=== PATIENT | female | born 1960 | race Caucasian/White ===

== ENCOUNTER 2016-12-11 12:29 | Inpatient (IN) | payer BC ==
[~2016-12-11] VITALS: Ht 165.1 cm; Wt 88.5 kg
[~2016-12-11 12:29] MED LIST: AMLO5TAB4 PO; DABI75CA3 PO; DIGO125T6 PO; DULO20CA45 PO; FLUO20CA19 PO; FURO-92 PO; LORA2TAB99 PO; ONDA4TAB7 PO; POTA20TA6 PO; SILD20TA PO; TIOT18CA INH; TREP0.12 PO; TREP2.5T PO; [UNRECOGNIZED DRUG - CODE] SC
[2016-12-11] MEDS ORDERED: ASPIRIN 81 MG TABLET CHEW PO ONE (13:00)
[2016-12-11] MEDS ORDERED: SODIUM CHLORIDE FLUSH 10ML SYR IVF ONE (13:00)
[2016-12-11] MEDS ORDERED: ASPIRIN 81 MG TABLET CHEW ONE (13:02)
[2016-12-11] MEDS ORDERED: FURO20TA3 PO (13:15)
[2016-12-11] MEDS ORDERED: TREP1TAB PO (13:19)
[2016-12-11 13:20] LABS: BLOOD UREA NITROGEN 17 mg/dL (7-18)
[2016-12-11] MEDS ORDERED: SPIR25TA3 PO (13:21)
[2016-12-11 13:25] LABS: IS PT STATUS REG ER OR PRE ER? YES
[2016-12-11] MEDS ORDERED: ACET1TAB50 PO (13:25)
[2016-12-11] MEDS ORDERED: DABI150C PO (13:25)
[2016-12-11] MEDS ORDERED: LOPE2TAB28 PO (13:25)
[2016-12-11] MEDS ORDERED: LORA10TA3 PO (13:25)
[2016-12-11] MEDS ORDERED: PHARMACY INSTRUCTION MC PRN (17:00)
[2016-12-11] MEDS ORDERED: ACETAMINOPHEN 325 MG TABLET PO PRN (17:00)
[2016-12-11] MEDS ORDERED: POLYETHYLENE GLYCOL 17 GM PACKET PO PRN (17:00)
[2016-12-11] MEDS ORDERED: BISACODYL 10 MG SUPP PR PRN (17:00)
[2016-12-11] MEDS ORDERED: ONDANSETRON 2MG/ML, 2ML IVP PRN (17:00)
[2016-12-11] MEDS ORDERED: PLEASE ENTER WEIGHT MC SCH (18:00)
[2016-12-11] MEDS ORDERED: FUROSEMIDE 20 MG TABLET PO SCH (18:15)
[2016-12-11 18:23] VITALS: BP 146/84
[2016-12-11] MEDS: TREPROSTINIL DIOLAMINE HOMEMEDPO SCH (18:28)
[2016-12-11 19:45] LABS: IS PT STATUS REG ER OR PRE ER? NO
[2016-12-11 20:33] VITALS: BP 111/75
[2016-12-11] MEDS: SILDENAFIL 20 MG TABLET HOMEMEDPO SCH (21:00)
[2016-12-11] MEDS ORDERED: SILDENAFIL 20 MG TABLET PO SCH (21:00)
[2016-12-11] MEDS: POTASSIUM CHLORIDE 20 MEQ TAB.ER.PRT PO SCH (21:32)
[2016-12-11] MEDS: DABIGATRAN 150 MG CAPSULE PO SCH (21:32)
[2016-12-12 01:20] VITALS: BP 95/64
[2016-12-12 01:43] LABS: IS PT STATUS REG ER OR PRE ER? NO
[2016-12-12 06:11] LABS: ASPARTATE AMINO TRANSFERASE 9 U/L (15-37); BLOOD UREA NITROGEN 20 mg/dL (7-18)
[2016-12-12 07:45] VITALS: BP 134/90
[2016-12-12] MEDS: POTASSIUM CHLORIDE 20 MEQ TAB.ER.PRT PO SCH (08:55)
[2016-12-12] MEDS: DABIGATRAN 150 MG CAPSULE PO SCH (08:55)
[2016-12-12] MEDS ORDERED: SPIRONOLACTONE 25 MG TABLET PO SCH (09:00)
[2016-12-12] MEDS ORDERED: LORATADINE 10 MG TABLET PO SCH (09:00)
[2016-12-12] MEDS: TREPROSTINIL DIOLAMINE HOMEMEDPO SCH (09:00)
[2016-12-12] MEDS ORDERED: FLUOXETINE 20 MG CAPSULE PO SCH (09:00)
[2016-12-12] MEDS ORDERED: FUROSEMIDE 40 MG TABLET PO SCH (09:00)
[2016-12-12] MEDS: SILDENAFIL 20 MG TABLET HOMEMEDPO SCH (09:00)
[2016-12-12] MEDS ORDERED: DIGOXIN 0.125 MG TABLET PO SCH (09:00)
[2016-12-12] MEDS ORDERED: AMLODIPINE 5 MG TABLET PO SCH (09:00)
== END 2016-12-12 18:38 | disposition home or self-care (01) | DRG 311 ==
LOC: ED 14:50 → EDIP 14:52 → ED 14:54 → 5SO 17:34
PROVIDERS: ADMIT Internal Medicine; ATTEND Internal Medicine
DX: I20.9 Angina pectoris, unspecified (principal); I50.33 Acute on chronic diastolic (congestive) heart failure; J96.10 Chronic respiratory failure, unspecified whether with hypoxia or hypercapnia; D68.59 Other primary thrombophilia; I48.0 Paroxysmal atrial fibrillation; I11.0 Hypertensive heart disease with heart failure; F32.9 Major depressive disorder, single episode, unspecified; I07.1 Rheumatic tricuspid insufficiency; F41.9 Anxiety disorder, unspecified; Z79.01 Long term (current) use of anticoagulants; Z79.899 Other long term (current) drug therapy; Z88.8 Allergy status to other drugs, medicaments and biological substances; Z99.81 Dependence on supplemental oxygen
CPT/HCPCS: 36415; 71010; 80048; 80053; 80061; 80162; 82040; 83880; 84443; 84484; 85025; 93005; 93306; 99285

== ENCOUNTER 2016-12-20 19:53 | Inpatient (IN) | payer BC ==
[~2016-12-20] VITALS: Ht 165.1 cm; Wt 88.1 kg
[~2016-12-20 19:53] MED LIST changes: +ACET1TAB50 PO; +DABI150C PO; +FURO20TA3 PO; +LOPE2TAB28 PO; +LORA10TA3 PO; +SPIR25TA3 PO; +TREP1TAB PO
[2016-12-20] MEDS ORDERED: SODIUM CHLORIDE FLUSH 10ML SYR IVF ONE (20:30)
[2016-12-20 20:41] LABS: BLOOD UREA NITROGEN 15 mg/dL (7-18)
[2016-12-20 20:46] LABS: ASPARTATE AMINO TRANSFERASE 20 U/L (15-37)
[2016-12-20 20:47] LABS: IS PT STATUS REG ER OR PRE ER? YES
[2016-12-20] MEDS ORDERED: SODIUM CHLORIDE FLUSH 10ML SYR IVF PRN (22:00)
[2016-12-20 23:47] VITALS: BP 125/72
[2016-12-21] MEDS ORDERED: ACETAMINOPHEN HOMEMEDPO PRN (00:30)
[2016-12-21] MEDS ORDERED: DIPHENHYDRAMINE HOMEMEDPO PRN (00:30)
[2016-12-21] MEDS ORDERED: [UNRECOGNIZED DRUG - OTHER] HOMEMEDPO PRN (00:30)
[2016-12-21] MEDS ORDERED: ORENITRAM MC SCH (00:30)
[2016-12-21] MEDS ORDERED: ACETAMINOPHEN 325 MG TABLET PO PRN (00:30)
[2016-12-21] MEDS ORDERED: LOPERAMIDE 2 MG CAPSULE PO PRN (00:30)
[2016-12-21] MEDS ORDERED: FUROSEMIDE 20 MG TABLET PO SCH (00:30)
[2016-12-21] MEDS ORDERED: TEMAZEPAM 15 MG CAPSULE PO PRN (00:30)
[2016-12-21 01:05] LABS: IS PT STATUS REG ER OR PRE ER? NO
[2016-12-21 03:19] VITALS: BP 101/65
[2016-12-21 06:50] LABS: IS PT STATUS REG ER OR PRE ER? NO
[2016-12-21 08:53] VITALS: BP 127/85
[2016-12-21] MEDS ORDERED: TREPROSTINIL DIOLAMINE HOMEMEDPO SCH (09:00)
[2016-12-21] MEDS ORDERED: DABIGATRAN 150 MG CAPSULE PO SCH (09:00)
[2016-12-21] MEDS ORDERED: FUROSEMIDE 40 MG TABLET PO SCH (09:00)
[2016-12-21] MEDS ORDERED: LORATADINE 10 MG TABLET PO SCH (09:00)
[2016-12-21] MEDS ORDERED: SPIRONOLACTONE 25 MG TABLET PO SCH (09:00)
[2016-12-21] MEDS ORDERED: DIGOXIN 0.125 MG TABLET PO SCH (09:00)
[2016-12-21] MEDS ORDERED: FLUOXETINE 20 MG CAPSULE PO SCH (09:00)
[2016-12-21] MEDS ORDERED: AMLODIPINE 5 MG TABLET PO SCH (09:00)
[2016-12-21] MEDS ORDERED: SILDENAFIL 20 MG TABLET PO SCH (09:00)
[2016-12-21] MEDS ORDERED: POTASSIUM CHLORIDE 20 MEQ TAB.ER.PRT PO SCH (09:00)
[2016-12-21 10:17] LABS: PATH.CAST-FLAG NOT PRESENT; SPERM-FLAG NOT PRESENT; SRC-FLAG NOT PRESENT; XTAL-FLAG NOT PRESENT; YLC-FLAG NOT PRESENT
[2016-12-21] MEDS ORDERED: LACT1CAP24 PO (11:11)
[2016-12-21] MEDS ORDERED: CEFD300C37 PO (11:11)
[2016-12-21] MEDS ORDERED: CEFDINIR 300 MG CAPSULE PO SCH (11:30)
[2016-12-21 12:47] VITALS: BP 105/78
== END 2016-12-21 13:13 | disposition home or self-care (01) | DRG 291 ==
LOC: ED 21:22 → EDIP 21:43 → 5SO 23:12 → DCLOUNGE 12-21 12:47
PROVIDERS: ADMIT Internal Medicine; ATTEND Internal Medicine
DX: I11.0 Hypertensive heart disease with heart failure (principal); J96.20 Acute and chronic respiratory failure, unspecified whether with hypoxia or hypercapnia; D68.69 Other thrombophilia; N39.0 Urinary tract infection, site not specified; I50.33 Acute on chronic diastolic (congestive) heart failure; I48.0 Paroxysmal atrial fibrillation; F32.9 Major depressive disorder, single episode, unspecified; I95.9 Hypotension, unspecified; I07.1 Rheumatic tricuspid insufficiency; Z88.8 Allergy status to other drugs, medicaments and biological substances; Z99.81 Dependence on supplemental oxygen
CPT/HCPCS: 36415; 80053; 80162; 81001; 84484; 85025; 87086; 93005; 93880

== ENCOUNTER 2017-01-03 10:16 | Day surgery (SDC) | payer BC ==
[~2017-01-03] VITALS: Ht 165.1 cm; Wt 84.1 kg
[~2017-01-03 10:16] MED LIST changes: +CEFD300C37 PO; +LACT1CAP24 PO
[2017-01-03] MEDS ORDERED: SODIUM CHLORIDE 0.9% 1,000 ML IV SCH (10:52)
[2017-01-03 10:58] VITALS: BP 108/66
[2017-01-03] MEDS ORDERED: PLEASE ENTER HEIGHT AND WEIGHT MC SCH (11:30)
[2017-01-03] MEDS ORDERED: FENTANYL PF 100 MCG/2ML ONE (12:33)
[2017-01-03] MEDS ORDERED: MIDAZOLAM 1 MG/ML, 5ML ONE (12:33)
[2017-01-03] MEDS ORDERED: LIDOCAINE 2%, 20ML ONE (12:33)
== END 2017-01-03 17:00 | disposition home or self-care (01) ==
LOC: CACL 10:16
PROVIDERS: ATTEND Internal Medicine Cardiovascular Disease
DX: I27.0 Primary pulmonary hypertension (principal); I36.1 Nonrheumatic tricuspid (valve) insufficiency; I48.0 Paroxysmal atrial fibrillation; Z88.6 Allergy status to analgesic agent; Z82.49 Family history of ischemic heart disease and other diseases of the circulatory system; Z79.01 Long term (current) use of anticoagulants
CPT/HCPCS: 93451; 99152; C1894; J2250; J3010; J3490

== ENCOUNTER → 2017-01-17 | Outpatient (CLI) | payer BC | END | disposition home or self-care (01) | LOC: CARD 15:19 | PROVIDERS: ATTEND Internal Medicine Cardiovascular Disease | DX: R06.02 Shortness of breath (principal) | CPT/HCPCS: 94060; 94726; 94729 ==

== ENCOUNTER 2018-08-28 08:13 | Day surgery (SDC) | payer OTHER ==
[~2018-08-28] VITALS: Ht 165.1 cm; Wt 87.3 kg
[~2018-08-28 08:13] MED LIST changes: +ACET-458 PO; -ACET1TAB50 PO; -DIGO125T6 PO; +DIGO125T81 PO; +LORA-247 PO; -LORA10TA3 PO; -SPIR25TA3 PO; +SPIR25TA5 PO
[2018-08-28 08:51] VITALS: BP 109/77
[2018-08-28] MEDS ORDERED: MACI10TA PO (09:08)
[2018-08-28 09:21] LABS: ANION GAP 7 mmol/L (5-15); CALCIUM 9.1 mg/dL (8.5-10.1); CHLORIDE 110 mmol/L (98-107)
[2018-08-28] MEDS ORDERED: PROPOFOL 10 MG/ML, 20ML ONE (15:59)
== END 2018-08-28 12:20 | disposition home or self-care (01) ==
LOC: CACL 08:13
PROVIDERS: ATTEND Internal Medicine Cardiovascular Disease
DX: I48.92 Unspecified atrial flutter (principal); I27.0 Primary pulmonary hypertension; I25.10 Atherosclerotic heart disease of native coronary artery without angina pectoris; Z79.01 Long term (current) use of anticoagulants; Z88.6 Allergy status to analgesic agent; Z88.8 Allergy status to other drugs, medicaments and biological substances
CPT/HCPCS: 36415; 80048; 80162; 92960; J2704

== ENCOUNTER 2018-09-29 07:18 | Inpatient (IN) | payer OTHER ==
[~2018-09-29] VITALS: Ht 165.1 cm; Wt 87.4 kg
[~2018-09-29 07:18] MED LIST changes: +MACI10TA PO
--- NOTE | 2018-09-29 07:57 | NUR ---
PT BIB FIRE FROM [facility]. PT WAS FOUND DOWN BY AND HAVING N/V AND DIARRHEA. PT STATED SHE DRANK A BOTTLE OF WINE LAST NIGHT. PT STATED SHE HAS BEEN A MEDICATION AT WHICH YOU ARE NOT SUPPOSED TO DRINK WITH. PT WITH HX: AFIB ON PRADAXA. PT WITH LARGE BM WITH BLOOD IN STOOL. PT CLEANED UP. PT THEN HAD COFFEE GROUND EMESIS. PT VERY DROWSY. PT RED THROUGHOUT BODY. PT PLACED ON BP, CARDIAC AND CONT. PULSE OXIMETER. ASSESSMETN COMPLETED. IV STARTED AND BLOOD DRAWN.
[2018-09-29] MEDS ORDERED: SODIUM CHLORIDE 0.9% 1,000ML IVBOLUS ONE ×2 (08:00→10:00)
[2018-09-29] MEDS ORDERED: PANTOPRAZOLE 80 MG in SODIUM CHLORIDE 0.9% 100 ML IV SCH (08:00)
[2018-09-29] MEDS ORDERED: SODIUM CHLORIDE FLUSH 10ML SYR IVF ONE (08:00)
[2018-09-29] MEDS ORDERED: FAMOTIDINE 20 MG/2 ML IVPush ONE (08:00)
[2018-09-29] MEDS ORDERED: ONDANSETRON 2MG/ML, 2ML IVPush ONE (08:00)
[2018-09-29] MEDS ORDERED: PANTOPRAZOLE 80 MG in SODIUM CHLORIDE 0.9% 50 ML IVPB ONE (08:00)
[2018-09-29] MEDS ORDERED: FAMOTIDINE 20 MG/2 ML ONE (08:20)
[2018-09-29] MEDS ORDERED: ONDANSETRON 2MG/ML, 2ML ONE (08:21)
[2018-09-29 08:36] LABS: BASOPHILS # (AUTO) 0.02 x10^3/uL (0-0.1); BASOPHILS % (AUTO) 0 % (0-1); EOSINOPHILS # (AUTO) 0.01 x10^3/uL (0-0.4); EOSINOPHILS % (AUTO) 0 % (1-7); LYMPHOCYTES % (AUTO) 8 % (22-44); MD NO; MEAN CORPUSCULAR HEMOGLOBIN 30.7 pg (27.0-34.8); MEAN CORPUSCULAR HGB CONC 32.6 g/dL (32.4-35.8); MEAN CORPUSCULAR VOLUME 94.1 fL (80-100); MEAN PLATELET VOLUME 8.7 fL (7.4-10.4); MONOCYTES # (AUTO) 0.39 x10^3/uL (0.2-0.8); MONOCYTES % (AUTO) 3 % (2-9); NEUTROPHILS # (AUTO) 14.25 x10^3/uL (1.8-6.8); NEUTROPHILS % (AUTO) 90 % (42-75); PLATELET COUNT 291 x10^3/uL (130-400); RED BLOOD COUNT 5.63 x10^6/uL (3.82-5.3); RED CELL DISTRIBUTION WIDTH 13.9 % (9.6-15.2)
[2018-09-29 08:46] LABS: INTERNATIONAL NORMALIZED RATIO 1.08 (0.93-1.1); PROTHROMBIN TIME 11.4 Seconds (9.6-11.5)
[2018-09-29 08:47] LABS: ALANINE AMINOTRANSFERASE 26 U/L (12-78); ALBUMIN 4.5 g/dL (3.4-5.0); ANION GAP 14 mmol/L (5-15); CALCIUM 9.7 mg/dL (8.5-10.1); CHLORIDE 108 mmol/L (98-107)
[2018-09-29 08:49] LABS: ALKALINE PHOSPHATASE 118 U/L (45-117); BILIRUBIN,TOTAL 0.3 mg/dL (0.2-1.0); CREATININE 1.55 mg/dL (0.55-1.02); TOTAL PROTEIN 8.4 g/dL (6.4-8.2)
--- NOTE | 2018-09-29 09:30 | NUR ---
pt resting in bed. no further emesis or bloody stools. vitals stable. meds given per md order
[2018-09-29] MEDS ORDERED: FLUT1DIS IH (09:35)
[2018-09-29] MEDS ORDERED: POLYETHYLENE GLYCOL 17 GM PACKET PO PRN (10:30)
[2018-09-29] MEDS ORDERED: ONDANSETRON 2MG/ML, 2ML IVPush PRN (10:30)
[2018-09-29] MEDS ORDERED: [UNRECOGNIZED DRUG - OTHER] HOMEMEDPO PRN (10:30)
[2018-09-29] MEDS ORDERED: DIPHENHYDRAMINE HOMEMEDPO PRN (10:30)
[2018-09-29] MEDS ORDERED: PANTOPRAZOLE 40 MG IV IVPush SCH (10:30)
[2018-09-29] MEDS ORDERED: ACETAMINOPHEN HOMEMEDPO PRN (10:30)
[2018-09-29] MEDS ORDERED: LABETALOL 5MG/ML, 20ML IVPush PRN (10:30)
[2018-09-29] MEDS ORDERED: ONDANSETRON ODT 4 MG PO PRN (10:30)
--- NOTE | 2018-09-29 10:33 | NUR ---
report given to ivy swan. per dr. smith- no fluids will be given for sepsis protocal. blood cultures orderd. no antibiotics given as of yet per dr. smith.
[2018-09-29 10:51] LABS: FREE T4 (FREE THYROXINE) 1.46 ng/dL (0.76-1.46)
[2018-09-29 11:11] VITALS: BP 152/72
[2018-09-29 13:23] LABS: MICROSCOPIC INDICATED
[2018-09-29] MEDS ORDERED: SODIUM CHLORIDE 0.45% 500 ML IV ONE ×2 (13:30→15:00)
[2018-09-29 13:32] LABS: CULTURE INDICATED? NO
[2018-09-29 14:00] VITALS: BP 124/73
[2018-09-29] MEDS ORDERED: IPRATROPIUM 0.5 MG/2.5 ML INHA NPPB PRN (17:00)
[2018-09-29] MEDS: SILDENAFIL 20 MG TABLET PO SCH (18:05)
[2018-09-29 19:57] VITALS: BP 113/68
[2018-09-29] MEDS: IPRATROPIUM 0.5 MG/2.5 ML INHA NPPB SCH (20:40)
[2018-09-29] MEDS: PANTOPRAZOLE 40 MG IV IVPush SCH (21:11)
[2018-09-30 02:20] VITALS: BP 110/61
[2018-09-30 05:55] LABS: BASOPHILS # (AUTO) 0.03 x10^3/uL (0-0.1); BASOPHILS % (AUTO) 0 % (0-1); EOSINOPHILS # (AUTO) 0.06 x10^3/uL (0-0.4); EOSINOPHILS % (AUTO) 1 % (1-7); LYMPHOCYTES # (AUTO) 1.64 x10^3/uL (1-3.4); LYMPHOCYTES % (AUTO) 19 % (22-44); MD NO; MEAN CORPUSCULAR HEMOGLOBIN 31.4 pg (27.0-34.8); MEAN CORPUSCULAR VOLUME 95.1 fL (80-100); MEAN PLATELET VOLUME 9.4 fL (7.4-10.4); MONOCYTES # (AUTO) 0.24 x10^3/uL (0.2-0.8); MONOCYTES % (AUTO) 3 % (2-9); NEUTROPHILS # (AUTO) 6.47 x10^3/uL (1.8-6.8); NEUTROPHILS % (AUTO) 77 % (42-75); PLATELET COUNT 222 x10^3/uL (130-400); RED CELL DISTRIBUTION WIDTH 14.1 % (9.6-15.2)
[2018-09-30 06:02] LABS: ALBUMIN 3.2 g/dL (3.4-5.0); ANION GAP 6 mmol/L (5-15); CALCIUM 7.8 mg/dL (8.5-10.1); CHLORIDE 112 mmol/L (98-107)
[2018-09-30 06:13] LABS: ALANINE AMINOTRANSFERASE 19 U/L (12-78); ALKALINE PHOSPHATASE 64 U/L (45-117); BILIRUBIN,TOTAL 0.7 mg/dL (0.2-1.0); CREATININE 0.95 mg/dL (0.55-1.02); THYROID STIMULATING HORMONE 0.596 mIU/L (0.358-3.740); TOTAL PROTEIN 6.2 g/dL (6.4-8.2)
[2018-09-30 07:41] VITALS: BP 129/77
[2018-09-30] MEDS: SILDENAFIL 20 MG TABLET PO SCH ×3 (08:00→21:37)
[2018-09-30] MEDS: TEMPLATE NON-FORMULARY MED. (Fluticasone/Salmeterol** (Advair 100-50 Diskus**) 1 PUFF) IH SCH (08:49)
[2018-09-30] MEDS: PANTOPRAZOLE 40 MG IV IVPush SCH (08:49)
[2018-09-30] MEDS: DIGOXIN 0.125 MG TABLET PO SCH (08:50)
[2018-09-30] MEDS: SPIRONOLACTONE 25 MG TABLET PO SCH (08:50)
[2018-09-30] MEDS: TEMPLATE NON-FORMULARY MED. (Macitentan** (Opsumit**) 10 MG) HOMEMEDPO SCH (08:50)
[2018-09-30] MEDS: AMLODIPINE 2.5 MG TABLET PO SCH (08:51)
[2018-09-30] MEDS: FLUOXETINE HCL 20 MG CAPSULE PO SCH (08:51)
[2018-09-30] MEDS: SENNA/DOCUSATE TABLET PO SCH (08:51)
[2018-09-30] MEDS: IPRATROPIUM 0.5 MG/2.5 ML INHA NPPB SCH ×2 (09:00→21:00)
[2018-09-30] MEDS ORDERED: AMLODIPINE 5 MG TABLET PO SCH (09:00)
[2018-09-30] MEDS: BUDESONIDE 0.5 MG/2 ML INHA INH SCH ×2 (09:00→21:00)
[2018-09-30] MEDS ORDERED: PROPOFOL 10 MG/ML, 50ML ONE (12:35)
[2018-09-30 13:55] VITALS: BP 106/72
[2018-09-30 18:54] VITALS: BP 129/73
[2018-09-30] MEDS: PANTOPROZOLE 40MG TABLET PO SCH (20:40)
[2018-10-01 01:30] VITALS: BP 99/58
[2018-10-01] MEDS: PANTOPROZOLE 40MG TABLET PO SCH (05:12)
[2018-10-01 06:11] LABS: BASOPHILS # (AUTO) 0.05 x10^3/uL (0-0.1); BASOPHILS % (AUTO) 1 % (0-1); EOSINOPHILS # (AUTO) 0.15 x10^3/uL (0-0.4); EOSINOPHILS % (AUTO) 2 % (1-7); LYMPHOCYTES # (AUTO) 1.72 x10^3/uL (1-3.4); LYMPHOCYTES % (AUTO) 18 % (22-44); MD NO; MEAN CORPUSCULAR HEMOGLOBIN 31.7 pg (27.0-34.8); MEAN CORPUSCULAR HGB CONC 33.5 g/dL (32.4-35.8); MEAN CORPUSCULAR VOLUME 94.5 fL (80-100); MEAN PLATELET VOLUME 8.5 fL (7.4-10.4); MONOCYTES # (AUTO) 0.49 x10^3/uL (0.2-0.8); MONOCYTES % (AUTO) 5 % (2-9); NEUTROPHILS # (AUTO) 7.11 x10^3/uL (1.8-6.8); NEUTROPHILS % (AUTO) 75 % (42-75); PLATELET COUNT 201 x10^3/uL (130-400); RED BLOOD COUNT 4.77 x10^6/uL (3.82-5.3); RED CELL DISTRIBUTION WIDTH 13.6 % (9.6-15.2)
[2018-10-01 06:25] LABS: ANION GAP 5 mmol/L (5-15); CHLORIDE 109 mmol/L (98-107)
[2018-10-01 07:50] VITALS: BP 110/73
[2018-10-01] MEDS: BUDESONIDE 0.5 MG/2 ML INHA INH SCH (08:09)
[2018-10-01] MEDS: IPRATROPIUM 0.5 MG/2.5 ML INHA NPPB SCH (08:09)
[2018-10-01 08:11] LABS: ALANINE AMINOTRANSFERASE 19 U/L (12-78); ALBUMIN 3.4 g/dL (3.4-5.0); BILIRUBIN,TOTAL 0.5 mg/dL (0.2-1.0); CALCIUM 8.5 mg/dL (8.5-10.1); CREATININE 0.97 mg/dL (0.55-1.02); TOTAL PROTEIN 6.6 g/dL (6.4-8.2)
[2018-10-01] MEDS ORDERED: DABIGATRAN 150 MG CAPSULE PO SCH (09:00)
[2018-10-01] MEDS: FLUOXETINE HCL 20 MG CAPSULE PO SCH (09:10)
[2018-10-01] MEDS: AMLODIPINE 2.5 MG TABLET PO SCH (09:10)
[2018-10-01] MEDS: SENNA/DOCUSATE TABLET PO SCH (09:10)
[2018-10-01] MEDS: DIGOXIN 0.125 MG TABLET PO SCH (09:11)
[2018-10-01] MEDS: SILDENAFIL 20 MG TABLET PO SCH (09:15)
[2018-10-01] MEDS: SPIRONOLACTONE 25 MG TABLET PO SCH (09:15)
[2018-10-01] MEDS: TEMPLATE NON-FORMULARY MED. (Fluticasone/Salmeterol** (Advair 100-50 Diskus**) 1 PUFF) IH SCH (09:16)
[2018-10-01] MEDS: TEMPLATE NON-FORMULARY MED. (Macitentan** (Opsumit**) 10 MG) HOMEMEDPO SCH (09:16)
[2018-10-01] MEDS ORDERED: PANT40TA5 PO (11:54)
[2018-10-01] MEDS ORDERED: DABI150C PO (11:54)
[2018-10-01 13:03] VITALS: BP 127/82
[2018-10-01 14:03] LABS: ALKALINE PHOSPHATASE 70 U/L (45-117)
[2018-10-01] MEDS ORDERED: POTA20TA6 PO (15:45)
== END 2018-10-01 13:45 | disposition home or self-care (01) | DRG 813 ==
LOC: ED 08:33 → EDIP 09:47 → 5SO 12:51 → DCLOUNGE 10-01 13:35
PROVIDERS: ADMIT Hospitalist; ATTEND Hospitalist
PROC: 0DJ68ZZ Inspection of Stomach, Via Natural or Artificial Opening Endoscopic (ICD-10-PCS; principal; 2018-09-30 12:30)
DX: D68.32 Hemorrhagic disorder due to extrinsic circulating anticoagulants (principal); K22.11 Ulcer of esophagus with bleeding; D68.59 Other primary thrombophilia; E87.1 Hypo-osmolality and hyponatremia; E87.0 Hyperosmolality and hypernatremia; E87.2 Acidosis; I50.30 Unspecified diastolic (congestive) heart failure; J96.10 Chronic respiratory failure, unspecified whether with hypoxia or hypercapnia; N17.9 Acute kidney failure, unspecified; N39.0 Urinary tract infection, site not specified; D64.9 Anemia, unspecified; E86.0 Dehydration; F32.9 Major depressive disorder, single episode, unspecified; I95.9 Hypotension, unspecified; T45.515A Adverse effect of anticoagulants, initial encounter; R74.8 Abnormal levels of other serum enzymes; F41.9 Anxiety disorder, unspecified; I11.0 Hypertensive heart disease with heart failure; I48.0 Paroxysmal atrial fibrillation; K21.9 Gastro-esophageal reflux disease without esophagitis; K22.2 Esophageal obstruction; K44.9 Diaphragmatic hernia without obstruction or gangrene; E66.9 Obesity, unspecified; Z87.81 Personal history of (healed) traumatic fracture; Z79.02 Long term (current) use of antithrombotics/antiplatelets; Z79.899 Other long term (current) drug therapy; Z82.49 Family history of ischemic heart disease and other diseases of the circulatory system; Z87.891 Personal history of nicotine dependence; Z88.8 Allergy status to other drugs, medicaments and biological substances; Y92.89 Other specified places as the place of occurrence of the external cause; Z68.32 Body mass index [BMI] 32.0-32.9, adult
CPT/HCPCS: 36415; 99291; J3490; J7626; J7644; 71045; 71046; 80053; 80162; 81001; 83605; 83690; 83735; 84100; 84439; 84443; 85014; 85018; 85025; 85610; 85730; 86850; 86900; 87040; 93005; 94640; G0378; J2405; J2704; C9113; J7030

== ENCOUNTER → 2019-08-17 | Outpatient (CLI) | payer OTHER ==
[~2019-08-17] MED LIST changes: +FLUT1DIS IH; +PANT40TA5 PO
== END | disposition home or self-care (01) ==
LOC: CVU 14:43
PROVIDERS: ATTEND Internal Medicine Cardiovascular Disease
DX: I27.0 Primary pulmonary hypertension (principal); I08.1 Rheumatic disorders of both mitral and tricuspid valves; I48.92 Unspecified atrial flutter; R06.02 Shortness of breath
CPT/HCPCS: 93306; 94060; 94726; 94729

== ENCOUNTER 2019-11-17 15:10 | Outpatient (CLI) | payer OTHER | END 2019-11-17 23:59 | disposition home or self-care (01) | LOC: CFH 15:10 | PROVIDERS: ATTEND Internal Medicine Cardiovascular Disease | DX: R91.1 Solitary pulmonary nodule (principal); J84.10 Pulmonary fibrosis, unspecified; J92.9 Pleural plaque without asbestos; Z87.891 Personal history of nicotine dependence | CPT/HCPCS: 71250 ==

== ENCOUNTER 2020-06-14 10:40 | Outpatient (CLI) | payer OTHER ==
[~2020-06-14 10:40] MED LIST changes: -PANT40TA5 PO; +PANT40TA6 PO
== END 2020-06-14 23:59 | disposition home or self-care (01) ==
LOC: RAD 10:40
PROVIDERS: ATTEND Internal Medicine Cardiovascular Disease
DX: I27.0 Primary pulmonary hypertension (principal); R06.02 Shortness of breath; I51.7 Cardiomegaly
CPT/HCPCS: 71046; 78582; A9540; A9558

== ENCOUNTER 2020-11-16 13:25 | Day surgery (SDC) | payer OTHER ==
[~2020-11-16] VITALS: Ht 165.1 cm; Wt 88.1 kg
[2020-11-16] MEDS ORDERED: CHLORHEXIDINE 15 ML UDC PO ONE ×2 (14:00→15:00)
[2020-11-16] MEDS ORDERED: LACTATED RINGERS 1,000 ML IV SCH ×2 (14:00→15:00)
[2020-11-16] MEDS ORDERED: APIX2.5T PO (14:20)
[2020-11-16] MEDS ORDERED: COLC0.6T37 PO (14:28)
[2020-11-16 15:00] VITALS: BP 120/78
[2020-11-16 15:01] LABS: BASOPHILS % (AUTO) 1 % (0-1); EOSINOPHILS % (AUTO) 2 % (1-7); LYMPHOCYTES % (AUTO) 18 % (22-44); MEAN CORPUSCULAR HEMOGLOBIN 28.4 pg (27.0-34.8); MEAN CORPUSCULAR HGB CONC 32.6 g/dL (32.4-35.8); MEAN PLATELET VOLUME 7.8 fL (7.4-10.4); MONOCYTES % (AUTO) 5 % (2-9); NEUTROPHILS % (AUTO) 75 % (42-75); PLATELET COUNT 227 x10^3/uL (130-400); RED BLOOD COUNT 4.88 x10^6/uL (3.82-5.3); RED CELL DISTRIBUTION WIDTH 17.3 % (9.6-15.2)
[2020-11-16 15:06] LABS: MD NO
[2020-11-16 15:09] LABS: ANION GAP 5 mmol/L (5-15); CALCIUM 9.2 mg/dL (8.5-10.1); CHLORIDE 111 mmol/L (98-107); CREATININE 0.85 mg/dL (0.55-1.02)
[2020-11-16] MEDS ORDERED: HEPARIN 5,000 UNITS/ML, 1ML ONE (15:20)
[2020-11-16] MEDS ORDERED: BUPIVACAINE/PF 0.25% ONE (15:20)
[2020-11-16] MEDS ORDERED: HEPARIN 1,000 UNITS/ML, 10ML ONE (15:20)
[2020-11-16] MEDS ORDERED: EPINEPHRINE 1 MG/ML, 1ML ONE (15:20)
[2020-11-16] MEDS ORDERED: MILRINONE 1 MG/ML, 10ML IV ONE (15:42)
[2020-11-16] MEDS ORDERED: HALOPERIDOL 5 MG/ML IV PRN (16:00)
[2020-11-16] MEDS ORDERED: HYDROmorphone 1 MG/ML, 1ML INJ IVPush PRN (16:00)
[2020-11-16] MEDS ORDERED: PROMETHAZINE 25 MG/ML, 1ML IVPush PRN (16:00)
[2020-11-16] MEDS ORDERED: OXYcodone 5 MG/5 ML ORAL.SOL UDC PO PRN (16:00)
[2020-11-16] MEDS ORDERED: FENTANYL PF 100 MCG/2ML IV PRN (16:00)
[2020-11-16] MEDS ORDERED: LABETALOL 5MG/ML, 20ML IV PRN (16:00)
[2020-11-16] MEDS ORDERED: DIPHENHYDRAMINE 50 MG/ML, 1ML IVPush PRN (16:00)
[2020-11-16] MEDS ORDERED: hydrALAzine 20 MG/ML, 1ML IV PRN (16:00)
[2020-11-16] MEDS ORDERED: MEPERIDINE/PF 25MG/0.5ML IVPush PRN (16:00)
[2020-11-16] MEDS ORDERED: FENTANYL PF 100 MCG/2ML ONE (16:04)
[2020-11-16] MEDS ORDERED: MIDAZOLAM 1 MG/ML, 2ML ONE ×2 (16:04→16:32)
[2020-11-16] MEDS ORDERED: LIDOCAINE 1%, 20ML ONE (16:46)
[2020-11-16] MEDS ORDERED: PROPOFOL 10 MG/ML, 20ML ONE ×2 (16:59→18:28)
[2020-11-16] MEDS ORDERED: FENTANYL PF 250 MCG/5ML ONE (17:53)
[2020-11-16] MEDS ORDERED: ONDANSETRON 2MG/ML, 2ML ONE (18:28)
[2020-11-16] MEDS ORDERED: CEFAZOLIN 1,000 MG ONE (18:28)
== END 2020-11-16 20:20 | disposition home or self-care (01) ==
LOC: OR 13:25
PROVIDERS: ATTEND Surgery
DX: I27.20 Pulmonary hypertension, unspecified (principal); I48.91 Unspecified atrial fibrillation; I10 Essential (primary) hypertension; E66.9 Obesity, unspecified; Z20.822 Contact with and (suspected) exposure to COVID-19; Z79.01 Long term (current) use of anticoagulants; Z79.899 Other long term (current) drug therapy; Z88.8 Allergy status to other drugs, medicaments and biological substances; Z99.81 Dependence on supplemental oxygen; Z82.49 Family history of ischemic heart disease and other diseases of the circulatory system
CPT/HCPCS: 36415; 36556; 71045; 80048; 85025; 87635; 93005; C1788; J0171; J0690; J1644; J2250; J2405; J2704; J3010; 76000; J2260

== ENCOUNTER 2020-11-21 09:00 | Observation (INO) | payer OTHER ==
[~2020-11-21] VITALS: Ht 165.1 cm; Wt 86.8 kg
[~2020-11-21 09:00] MED LIST changes: +APIX2.5T PO; +COLC0.6T37 PO
[2020-11-21 10:51] VITALS: BP 103/64
[2020-11-21] MEDS ORDERED: COLCHICINE 0.6 MG CAPSULE PO PRN (12:00)
[2020-11-21] MEDS ORDERED: MAGNESIUM HYDROXIDE 8%, 30ML UDC PO PRN (12:00)
[2020-11-21] MEDS ORDERED: ONDANSETRON 2MG/ML, 2ML IV PRN (12:00)
[2020-11-21] MEDS ORDERED: LOPERAMIDE 2 MG CAPSULE PO PRN (12:00)
[2020-11-21] MEDS ORDERED: DIPHENHYDRAMINE 25 MG CAPSULE PO PRN (12:00)
[2020-11-21] MEDS ORDERED: ACETAMINOPHEN 650 MG/20.3 ML UDC PO PRN (12:00)
[2020-11-21 12:14] LABS: BASOPHILS % (AUTO) 1 % (0-1); EOSINOPHILS % (AUTO) 1 % (1-7); LYMPHOCYTES % (AUTO) 15 % (22-44); MEAN CORPUSCULAR HEMOGLOBIN 28.3 pg (27.0-34.8); MEAN CORPUSCULAR HGB CONC 32.6 g/dL (32.4-35.8); MEAN PLATELET VOLUME 7.3 fL (7.4-10.4); MONOCYTES % (AUTO) 5 % (2-9); NEUTROPHILS % (AUTO) 78 % (42-75); PLATELET COUNT 218 x10^3/uL (130-400); RED BLOOD COUNT 4.97 x10^6/uL (3.82-5.3); RED CELL DISTRIBUTION WIDTH 17.4 % (9.6-15.2)
[2020-11-21 12:20] LABS: MD NO
[2020-11-21 12:28] LABS: ALANINE AMINOTRANSFERASE 26 U/L (12-78); ANION GAP 7 mmol/L (5-15); CALCIUM 9.3 mg/dL (8.5-10.1); CHLORIDE 107 mmol/L (98-107); CREATININE 0.98 mg/dL (0.55-1.02)
[2020-11-21 12:30] LABS: ALKALINE PHOSPHATASE 97 U/L (45-117); BILIRUBIN,TOTAL 0.5 mg/dL (0.2-1.0); TOTAL PROTEIN 7.6 g/dL (6.4-8.2)
[2020-11-21] MEDS: SILDENAFIL 20 MG PO SCH ×2 (13:00→16:00)
[2020-11-21] MEDS: OPSUMIT 10 MG PO SCH ×2 (13:00→16:00)
[2020-11-21] MEDS: TREPROSTINIL PO SCH ×2 (13:00→16:00)
[2020-11-21 13:10] VITALS: BP 115/69
[2020-11-21] MEDS ORDERED: FILTER 0.22 MICRON IV SCH (15:00)
[2020-11-21] MEDS ORDERED: TREPROSTINIL SODIUM IV SCH ×9 (15:00→23:30)
[2020-11-21] MEDS ORDERED: [UNRECOGNIZED DRUG - OTHER] IV SCH ×9 (15:00→23:30)
[2020-11-21] MEDS ORDERED: TREPROSTINIL PO SCH (16:00)
[2020-11-21] MEDS ORDERED: SILDENAFIL 20 MG PO SCH (16:00)
[2020-11-21] MEDS ORDERED: OPSUMIT 10 MG PO SCH (16:00)
[2020-11-21 18:11] VITALS: BP 108/63
[2020-11-21 18:42] VITALS: BP 112/73
[2020-11-21] MEDS: SODIUM CHLORIDE FLUSH 10ML SYR IVF SCH (20:59)
[2020-11-21] MEDS: APIXABAN 5 MG TABLET PO SCH (20:59)
[2020-11-22 00:57] VITALS: BP 110/70
[2020-11-22] MEDS ORDERED: [UNRECOGNIZED DRUG - OTHER] IV SCH ×2 (03:30)
[2020-11-22] MEDS ORDERED: TREPROSTINIL SODIUM IV SCH ×2 (03:30)
[2020-11-22] MEDS ORDERED: OMEPRAZOLE 20 MG CAPSULE.DR PO SCH (06:00)
[2020-11-22] MEDS: SILDENAFIL 20 MG PO SCH ×2 (07:00→11:00)
[2020-11-22] MEDS: OPSUMIT 10 MG PO SCH ×2 (07:00→11:00)
[2020-11-22 07:52] VITALS: BP 103/72
[2020-11-22] MEDS ORDERED: POTASSIUM CHLORIDE 20 MEQ TAB.ER.PRT PO SCH (08:00)
[2020-11-22] MEDS: SODIUM CHLORIDE FLUSH 10ML SYR IVF SCH (08:42)
[2020-11-22] MEDS: APIXABAN 5 MG TABLET PO SCH (08:43)
[2020-11-22] MEDS ORDERED: SPIRONOLACTONE 25 MG TABLET PO SCH (09:00)
[2020-11-22] MEDS ORDERED: DIGOXIN 0.125 MG TABLET PO SCH (09:00)
[2020-11-22] MEDS ORDERED: FUROSEMIDE 20 MG TABLET PO SCH (09:00)
[2020-11-22] MEDS ORDERED: FLUOXETINE HCL 20 MG CAPSULE PO SCH (09:00)
[2020-11-22] MEDS ORDERED: ORENITRAM PO (09:53)
[2020-11-22] MEDS ORDERED: TREPROSTINIL PO SCH (11:00)
[2020-11-22 13:32] VITALS: BP 111/68
[2020-11-22] MEDS ORDERED: ONDA4TAB13 SL (14:08)
[2020-11-22] MEDS ORDERED: ONDANSETRON ODT 4 MG ONE (16:12)
== END 2020-11-22 16:15 | disposition home or self-care (01) ==
LOC: INTOOBSV 10:24 → 5SO 10:24
PROVIDERS: ADMIT Internal Medicine Cardiovascular Disease; ATTEND Internal Medicine Cardiovascular Disease
DX: I27.0 Primary pulmonary hypertension (principal); I48.19 Other persistent atrial fibrillation; D68.59 Other primary thrombophilia; K21.9 Gastro-esophageal reflux disease without esophagitis; Z79.899 Other long term (current) drug therapy; Z79.01 Long term (current) use of anticoagulants
CPT/HCPCS: 36415; 80053; 85025; 93005; 96365; 96366; 96375; G0378; J2405; J3285